=== PATIENT | female | born 1960 | race Caucasian/White ===

== ENCOUNTER 2016-12-30 07:54 | Emergency (ER) | payer MEDICARE ==
--- NOTE | 2016-12-30 10:22 | RAD ---
RIGHT HAND 3 VIEWS: Date: 12/30/16 FINDINGS: No acute fracture was appreciated. The carpals all appeared intact. There is some deformity at the b ase of the fifth metacarpal that appears to be from an old fracture. IMPRESSION: 1. No acute bony findings. 2. Probable old healed injury of the proximal fifth metacarpal. POS: HOME
== END 2016-12-30 08:40 | disposition home or self-care (01) ==
LOC: BURERS 07:54
DX: S60.221A Contusion of right hand, initial encounter (principal); G89.29 Other chronic pain; M19.90 Unspecified osteoarthritis, unspecified site; M54.9 Dorsalgia, unspecified; F41.9 Anxiety disorder, unspecified; F32.9 Major depressive disorder, single episode, unspecified; F17.210 Nicotine dependence, cigarettes, uncomplicated; W22.8XXA Striking against or struck by other objects, initial encounter

== ENCOUNTER 2019-09-23 09:00 | Emergency (ER) | payer MEDICARE ==
[2019-09-23] MEDS ORDERED: Aspirin Chewable 81 MG TAB ONE (09:19)
[2019-09-23] MEDS ORDERED: Nitroglycerin 0.4 MG TAB 1 EACH ONE (09:19)
[2019-09-23] MEDS ORDERED: Ondansetron ODT 4 MG TAB ONE (09:19)
[2019-09-23 09:33] LABS: #Basophils 0.2 thou/uL (0.0-0.2); #Monocytes 0.9 thou/uL (0.11-0.59); #Neutrophils 10.5 thou/uL (1.40-6.50); %Eosinophils 0.2 % (0.0-10.0); %Lymphocytes 20.5 % (21.0-51.0); %Monocytes 6.3 % (0.0-10.0); %Neutrophils 71.9 % (42.0-75.0); Hemoglobin 17.5 g/dL (12.0-16.0); Mean Corpuscular HGB CONC 33.2 g/dL (32.0-36.0); Mean Corpuscular Hemoglobin 29.1 pg (27.0-31.0); Mean Corpuscular Volume 87.5 fL (78.0-98.0); Mean Platelet Volume 10.2 fL (7.4-10.4); Platelet Count 266 thou/uL (130-400); Red Blood Cell (RBC) Count 6.03 mill/uL (4.20-5.40); White Blood Cell (WBC) Count 14.6 thou/uL (4.8-10.8)
[2019-09-23 09:47] LABS: ALT (SGPT) 75 U/L (8-55); AST (SGOT) 48 U/L (5-34); Albumin 4.5 g/dL (3.5-5.0); Alkaline Phosphatase 128 U/L (40-110); Anion Gap 18 mmol/L (10-20); BUN (Urea Nitrogen) 24 mg/dL (9.8-20.1); Bilirubin, Total 1.3 mg/dL (0.2-1.2); Calc. Creatinine Clearance 0 mL/min (70-130); Calcium 9.7 mg/dL (7.8-10.44); Carbon Dioxide 21 mmol/L (22-29); Chloride 102 mmol/L (98-107); Estimated GFR-MDRD 66; Globulin 3.4 g/dL (2.4-3.5); Glucose 108 mg/dL (70-105); Potassium 3.4 mmol/L (3.5-5.1); Protein, Total 7.9 g/dL (6.0-8.3); Sodium 138 mmol/L (136-145)
--- NOTE | 2019-09-23 15:20 | RAD ---
PORTABLE CHEST: DATE: 09/23/2019. FINDINGS: An AP portable film at 0928 is compared with an 07/04/2011 study. The heart is normal in size and the lungs are clear. No infiltrate or effusion was seen. There is n o congestive change. An old healed right clavicular fracture is noted. IMPRESSION: No acute thoracic finding. POS: HOME
== END 2019-09-23 10:26 | disposition home or self-care (01) ==
LOC: BURERS 09:00
DX: R07.9 Chest pain, unspecified (principal); E86.0 Dehydration; E87.6 Hypokalemia; J44.9 Chronic obstructive pulmonary disease, unspecified; K21.9 Gastro-esophageal reflux disease without esophagitis; F41.9 Anxiety disorder, unspecified; F32.9 Major depressive disorder, single episode, unspecified; F17.210 Nicotine dependence, cigarettes, uncomplicated; R11.0 Nausea; V89.2XXA Person injured in unspecified motor-vehicle accident, traffic, initial encounter
CPT/HCPCS: 71045; 80053; 83880; 84484; 85025; 93005; Q0162